=== PATIENT | female | born 1980 | race Caucasian/White ===

== ENCOUNTER 2025-05-06 12:25 | Emergency (ER) | payer BC, SELFPAY ==
[2025-05-06 13:46] VITALS: BMI 31.8
--- NOTE | 2025-05-06 14:56 | ED.GENMED ---
History of Present Illness
General
Chief Complaint: Bowel Problem
Source: patient
Exam Limitations: none
Time Seen by Provider: 05/06/25 14:01
Nursing documentation reviewed up to this point in time: agreed with
History of Present Illness
History of Present Illness:
44-year-old female presents with constipation onset week or 2 ago no bowel movement, seen at a hospital [place] had blood work and a CAT scan discharged to home on some stool softeners has some crampy abdominal symptoms a pain into her back no
fevers no vomiting does take a GLP-1 medication no prior abdominal surgeries
Has had no GLP-1 for about 2 weeks, she has had herself on a bland diet, tried some mag citrate with just loose stools,
Past History
Past History
ED Past Medical History: None; Negative Asthma, HTN, Hypercholesterolemia or NIDDM
ED Past Surgical History:
Social History
Tobacco: Former smoker
Alcohol: Occasional
Drug: None
Personal:
Living: with family
Employment: Employed
Review of Systems
Review of Systems
All Other Systems: Not applicable
Constitutional: Denies fever or fatigue
EENT: Reports no symptoms
Respiratory: Reports no symptoms
Cardiac: Reports no symptoms
ABD/GI: Reports abdominal pain and constipated
Phy Exam
Physical Exam
Physical Exam:
Physical Exam
General: no apparent distress, not acutely ill
Neck: No jaundice
Heart: s1/s2 regular rate and rhythm, no murmur. equal radial pulses.
Lungs: no acute respiratory distress. clear bilaterally
Abdomen: Soft, minimal diffuse tenderness no guarding or
Neuro: alert and oriented. no focal neurological deficits
Skin: no rash
Psychiatric: well kept. interactive and cooperative
Extremities: no edema.
Course
Orders/Labs/Results
Orders:
Orders
05/06/25 14:01
Abdomen Xray - 1 View [CR Abdomen - 1 View] Urgent
Comment:
Reason For Exam: full of stool
05/06/25 15:39
Dicyclomine [Bentyl] 20 mg PO NOW STA
Vital Signs
Initial and Last Documented VS:
Initial Vital Signs
Temp Pulse Resp Pulse Ox
98.0 F 101 17 99
05/06/25 12:28 05/06/25 12:28 05/06/25 12:28 05/06/25 12:28
Last Documented Vital Signs
Temp Pulse Resp Pulse Ox
98.0 F 101 17 99
05/06/25 12:28 05/06/25 12:28 05/06/25 12:28 05/06/25 14:58
MDM/Problems Addressed
Differential Diagnosis Includes:
Constipation medication effect from GLP-1 diverticulitis ileus obstipation
MDM/Problems Addressed:
Constipation
Chronic conditions affecting care:
GLP-1 medication prior
Acute Exacerbation and/or Progression of Chronic Illness:
GLP-1 prior surgery
*Pulse Oximetry
SaO2: 99
Oxygen Mode of Delivery: Room air
Patient hypoxic: no
*Critical Care Note
Total Time (30-74mins, 75-104mins- exclusive of procedures): Not Applicable
Update Note
Update Note:
3 PM update patient had a CT and labs recently, will start with KUB
3:35 PM update patient requested a food tray reevaluation she is eating a sandwich in no acute distress her abdomen is soft etiology her symptoms not entirely clear does not appear to have much stool on her x-ray, she is to be very self enemas use
mag citrate without much relief
No peritonitis, no fever no signs of bowel obstruction by history physical and the fact that she is eating, without difficulty will try some Bentyl
Additionally she has had 3 CTs of her abdomen pelvis in our system plus at least another 1 in outside hospital would like to not radiate her anymore
PCP GI follow-up ER if worsening symptoms
ED Attending Note
-
Portions of this chart may have been created with voice recognition software.� Occasional wrong word or��sound alike� substitutions may have occurred due to the inherent limitations of voice recognition software.
Discharge Plan
Departure
Patient Disposition: Home (Routine Discharge)
Date of Disposition: 05/06/25
Time of Disposition: 15:38
Patient with high blood pressure during this ER visit?: No
Condition: Good
Covid-19: Not Applicable
Discharge Problem:
Abdominal pain
Instructions: Abdominal Pain
Prescriptions:
New
dicyclomine 20 mg tablet
20 mg PO QID PRN (Reason: abdominal pain) Qty: 20 0RF
lactulose 20 gram packet
20 g PO BID PRN (Reason: Constipation) Qty: 30 2RF
No Action
multivitamin 1 EACH tablet
1 ea PO DAILY
Pregnenolone
1 tab PO HS
Phosphatidylcholine
1,000 mg PO DAILY
cholecalciferol (vitamin D3) 5,000 UNIT tablet,disintegrating
5,000 unit PO DAILY
levofloxacin [Levaquin] 500 MG tablet
500 mg PO DAILY Qty: 6 0RF
phenazopyridine 100 MG tablet
100 mg PO BID Qty: 8 0RF
Referrals:
Latosha Morrow MD [Family Provider, Family Practice]
Perla Medel MD [Active, Gastroenterology] - Next open appointment
Interventions
Interventions:
*Risk Screen - Suicide Last Done: 05/06/25 12:29
*General Assessment Last Done: 05/06/25 12:29
*Neglect/Abuse Screening Last Done: 05/06/25 12:29
*ED COVID-19 Vaccine History Last Done: 05/06/25 12:29
*ED Influenza Vaccine History Last Done: 05/06/25 12:29
EL-Rkaprb-Bysnwlewvx Assessment Last Done: 05/06/25 13:46
Discharge Date and Time
Print Language: DANISH
[2025-05-06] MEDS: MAALOX 40 PO (15:57)
[2025-05-06] MEDS: BENTYL 20 MG PO (15:57)
[2025-05-06 16:14] VITALS: BP 148/80
== END 2025-05-06 16:22 | disposition home or self-care (01) ==
LOC: EMR 12:25
PROVIDERS: EMERGENCY PHYSICIAN Emergency Medicine; FAMILY PHYSICIAN Family Medicine
DX: R10.9 Unspecified abdominal pain (principal); Z87.891 Personal history of nicotine dependence
CPT/HCPCS: 99283; 74018